=== PATIENT | male | born 1990 | race Caucasian/White ===

== ENCOUNTER 2019-01-18 16:32 | Emergency (ER) | payer MEDICAID, OTHER ==
[2019-01-18 16:56] VITALS: BP 135/79
--- NOTE | 2019-01-18 17:28 | UC ---
Dental HPI - HPI Summary HPI Summary: RIGHT UPPER DENTAL PAIN X1 MONTH. PAIN WORSE YESTERDAY. TAKING TYLENOL PRN AND TOOK LEFTOVER AMOX 500MG TAB LAST NIGHT. HAS DENTAL APPT TMR. - History of Current Complaint Chief Complaint: UCDentalProblem Stated Complaint: DENTAL COMPLAINT Hx Obtained From: Patient Onset/Duration: Sudden Onset, Lasting Days - 1 Severity: Mild Pain Intensity: 2 Related History: Previous Dental Care on Same Tooth - Allergies/Home Medications Allergies/Adverse Reactions: Allergies Allergy/AdvReac Type Severity Reaction Status Date / Time No Known Allergies Allergy Verified 01/18/19 16:53 PMH/Surg Hx/FS Hx/Imm Hx Previously Healthy: Yes - Surgical History Surgical History: Yes Surgery Procedure, Year, and Place: COLLAR BONE FX - Family History Known Family History: Positive: Other - no hx of glaucoma Negative: Cardiac Disease, Hypertension - Social History Alcohol Use: Weekly Alcohol Amount: 9-10 Substance Use Type: None Substance Use Comment - Amount & Last Used: yesterday Smoking Status (MU): Current Every Day Smoker Type: Cigarettes Amount Used/How Often: 1 PPD Household Exposure Type: Cigarettes - Immunization History Most Recent Tetanus Shot: UNSURE Review of Systems All Other Systems Reviewed And Are Negative: Yes Constitutional: Positive: Negative Skin: Positive: Negative Eyes: Positive: Negative ENT: Positive: Dental Pain Respiratory: Positive: Negative Cardiovascular: Positive: Negative Gastrointestinal: Positive: Negative Genitourinary: Positive: Negative Motor: Positive: Negative Neurovascular: Positive: Negative Musculoskeletal: Positive: Negative Neurological: Positive: Negative Psychological: Positive: Negative Is Patient Immunocompromised?: No Physical Exam Triage Information Reviewed: Yes Appearance: Well-Appearing, Well-Nourished, Pain Distress Vital Signs: Initial Vital Signs Temp 98 F 01/18/19 16:53 Pulse 79 01/18/19 16:53 Resp 16 01/18/19 16:53 BP 135/79 01/18/19 16:53 Pulse Ox 97 01/18/19 16:53 Vital Signs Reviewed: Yes Eye Exam: Normal ENT Exam: Normal Dental: Positive: Gross Decay/Caries @, Dental Fracture @, Cellulitis @ - of the upper gum line Neck exam: Normal Neck: Positive: Supple, Nontender, No Lymphadenopathy Respiratory Exam: Normal Respiratory: Positive: Chest non-tender, Lungs clear, Normal breath sounds Cardiovascular: Positive: RRR, No Murmur, Pulses Normal Abdominal Exam: Normal Bowel Sounds: Positive: Present Musculoskeletal Exam: Normal Neurological Exam: Normal Psychological Exam: Normal Skin Exam: Normal Dental Complaint Course/Dx - Course Course Of Treatment: hx obtained, exam performed ,meds reviewed, treated for infection and advised on pain managment, follow up with dentist tomorrow - Differential Dx/Diagnosis Differential Diagnosis/Dx: Dental Abscess, Dental Caries, Fractured Tooth Provider Diagnosis: Dental caries, Pain, dental Discharge - Sign-Out/Discharge Documenting (check all that apply): Patient Departure All imaging exams completed and their final reports reviewed: No Studies - Discharge Plan Condition: Stable Disposition: HOME Patient Education Materials: Toothache (ED) Referrals: No Primary Care Phys,NOPCP [Primary Care Provider] - Additional Instructions: 1. take the antibiotics as prescribed 2. Use 600 mg ibuprofen with 1000 mg of tylenol every 8 hours for pain. 3. FOllow up with the dentist tomorrow - Billing Disposition and Condition Condition: STABLE Disposition: Home
== END 2019-01-18 17:33 | disposition home or self-care (01) ==
LOC: UCCORT 16:32
DX: K02.9 Dental caries, unspecified (principal); K08.89 Other specified disorders of teeth and supporting structures; F17.210 Nicotine dependence, cigarettes, uncomplicated
CPT/HCPCS: 99212; G0463